=== PATIENT | female | born 1950 | race Caucasian/White ===

== ENCOUNTER 2025-03-17 15:48 | Observation (INO) | payer OTHER, SELFPAY ==
[2025-03-17] VITALS (48 sets, daily range): BP systolic 94–155; BP diastolic 37–63; PULSE 12–90; RESP 8–55; TEMP 36.5–36.6; O2SAT 93–99
--- NOTE | 2025-03-17 15:45 | DI.CT_ITS ---
Exam(s) CT CHEST/ABD/PEL WO CT THORACIC LUMBAR SPINE REC EXAM: CT CHEST/ABD/PEL WO CLINICAL HISTORY: trauma. TECHNIQUE: Imaging Protocol: Axial computed tomography images with coronal and sagittal reformatted images were created and reviewed. Computer aided detection (CAD) was utilized. Axial, coronal and sagittal images of the thoracic and lumbar spine were reconstructed from the chest abdomen and pelvic CT in bone and soft tissue algorithm. CONTRAST MATERIAL: Noncontrast Oral: / no COMPARISON: CT CT THORACIC LUMBAR SPINE REC from 03/17/2025 FINDINGS: CHEST: Pulmonary parenchyma: No consolidation. No dominant measurable mass. Mild right basilar atelectasis adjacent to the pleural effusion. Tracheobronchial tree: No bronchiectasis. No mucous plugging.No bronchial wall thickening. Pleura: Small bilateral pleural effusions, right greater than left. No pneumothorax. Mediastinum: No gross adenopathy. Cardiovascular: The heart is mildly enlarged. There are mitral annular calcifications. No pericardial effusion. Thoracic aorta non-dilated. Bones: Degenerative changes of the thoracic spine with endplate osteophytes. No lytic or blastic lesions. No compression fractures. No visible rib fractures. Soft tissues: Unremarkable. ABDOMEN and PELVIS: Liver: Tips. Normal density. No suspicious mass. Gallbladder and biliary tract: Gallbladder is somewhat distended. Question of small stones. Tips. Biliary air. Pancreas: Normal density, no abnormal calcifications or inflammatory process. Spleen: Normal size. Kidneys: Normal size, contour and axis. No radiodense stones. No obstructive uropathy. No suspicious masses seen. Adrenal glands: Bilateral adrenal enlargement, left greater than right. No focal mass is visible. Aorta: Abdominal portion non-dilated. Atherosclerotic changes. Lymph nodes: Within normal limits. Soft tissues: Right lateral soft tissue edema. No focal hematoma. Bladder: Unremarkable. Bowel: No obstruction or bowel wall thickening. Sigmoid diverticulosis. Normal quantity of stool. Peritoneal cavity: Ascites is noted around the liver and spleen, in both paracolic gutters as well as in the pelvis. No focal collection. No mesenteric inflammatory response. No free air. Bones: No evidence of fracture in the lumbar spine or pelvis. Degenerative disc changes and facet degenerative changes at L4-5 combine to cause severe central canal stenosis. There is mild central canal stenosis at L3-4 secondary to combination of degenerative changes. Reproductive organs: Unremarkable for age. IMPRESSION: No acute posttraumatic abnormality in the chest, abdomen or pelvis. Soft tissue edema laterally in the left lower chest and abdomen. There are small bilateral pleural effusions, right greater than left. Tips. Large quantity of ascites. The gallbladder is distended. Probable gallstones. No fractures are identified in the thoracic or lumbar spine. RADIATION DOSE DELIVERED: Total DLP DATA REPOSITORY: All CT scans at this facility are submitted to the National Radiology Data Registry (NRDR) Dose Index Registry (DIR) with the [employer] (A[employer]). RADIATION OPTIMIZATION: All CT scans at this facility use at least one of these dose optimization techniques: automated exposure control; mA and/or kV adjustment per patient size (includes targeted exams where dose is matched to clinical indication); or iterative reconstruction.
--- NOTE | 2025-03-17 15:45 | DI.RAD_ITS ---
Exam(s) XR PELVIS AP EXAM: XR PELVIS AP CLINICAL HISTORY: Fall. TECHNIQUE: 2D digital imaging was performed. Single AP view. COMPARISON: No exams were available for comparison FINDINGS: BONES: No acute fracture is present. No bony destructive lesion is seen. JOINTS: No dislocation present. Mild bilateral hip joint space narrowing is present. There is prominent bilateral acetabular spurring superiorly. There are mild degenerative changes at the pubic symphysis. The SI joints are unremarkable. SOFT TISSUE: Normal. IMPRESSION: Mild degenerative changes. No acute abnormality. DATA REPOSITORY: RADIATION DOSE DELIVERED:
--- NOTE | 2025-03-17 15:46 | DI.RAD_ITS ---
Exam(s) XR PORTABLE CHEST AP EXAM: XR PORTABLE CHEST AP CLINICAL HISTORY: AMS TECHNIQUE: 2D digital imaging was performed. COMPARISON: No exams were available for comparison FINDINGS: The exam is limited by poor pulmonary inflation. There are overlying monitoring leads. LUNGS: Linear atelectasis at the right lung base. No pleural abnormality seen. HEART: Normal size. AORTA: Normal diameter. BONES: Unremarkable for age. Soft tissues: Unremarkable. IMPRESSION: Limited exam. No acute findings. DATA REPOSITORY: RADIATION DOSE DELIVERED:
--- NOTE | 2025-03-17 15:56 | DI.CT_ITS ---
Exam(s) CT HEAD CERVICAL SPINE WO EXAM: CT HEAD CERVICAL SPINE WO CLINICAL HISTORY: trauma. TECHNIQUE: Imaging Protocol: Axial computed tomography images with coronal and sagittal reformatted images were created and reviewed COMPARISON: None FINDINGS: Head CT Ventricles and Extra axial spaces: Normal in size and morphology for the patient's age. Hemorrhage: None. Cerebral parenchyma: No evidence of mass or acute infarct. Midline shift: None. Brainstem/Cerebellum: Normal. Calvarium: Normal. Visualized Paranasal sinuses/Mastoids: Clear. Soft tissues: Unremarkable. Cervical Spine CT BONES: Vertebral body heights are maintained. Alignment is normal. There is no evidence of acute fracture. Advanced degenerative disc changes and facet degenerative changes are seen . SOFT TISSUES: No paraspinal hematoma. The airway appears intact. No pneumothorax is seen at the lung apices. IMPRESSION: Head CT: No acute abnormality. C-spine CT: Degenerative changes, no acute abnormality. RADIATION DOSE DELIVERED: Total DLP DATA REPOSITORY: All CT scans at this facility are submitted to the National Radiology Data Registry (NRDR) Dose Index Registry (DIR) with the [employer] (ACR). RADIATION OPTIMIZATION: All CT scans at this facility use at least one of these dose optimization techniques: automated exposure control; mA and/or kV adjustment per patient size (includes targeted exams where dose is matched to clinical indication); or iterative reconstruction.
[2025-03-17] MEDS: Normal Saline 1,000 ML 1000 ML IV (16:03)
[2025-03-17 16:11] LABS: Abs Immature Grans 0.13 10^3/uL (0.0-0.06); HCT 30.9 % (36.0-46.0); HGB 10.4 g/dL (11.2-15.7); Immature Grans % 1.0 %; MCH 30.3 pg (27.0-33.0); MCHC 33.7 % (32.0-36.0); MCV 90 fL (80-95); MPV 12.1 fL (8.0-11.0); Platelet Count 194 10^3/uL (130-400); RBC 3.43 10^6/uL (3.93-5.22); RDW 16.0 % (11.7-14.6); RDW-SD 52.7 fL; WBC 13.60 10^3/uL (4.4-10.8)
--- NOTE | 2025-03-17 16:23 | W.ED.GENAD ---
Discharge Plan Disposition Patient Disposition: Admit to [facility] Condition: Serious Discharge Details Clinical Impression: Acute renal failure ED Provider: Vega Groves Home Meds and New Rx's Prescriptions: No Action Unable to Obtain HPI General Date/Time Provider Initiated Documentation: 03/17/25 16:07. HPI Narrative: MDM/Narrative: [] 18: 09 Case discussed with radiology who refuses to use contrast media given the patient's acute renal failure. As such we will obtain noncontrasted studies of the chest abdomen pelvis and spine to rule out acute traumatic injury as well as assessed for possible metastatic burden as a cause of patient's symptoms 18:55 Results reviewed patient is currently in acute renal failure, with an elevated leukocytosis which could be due to her severe pain however given the fact that she presented hypotensive and altered, patient was treated with broad-spectrum antibiotics. Disposition: [] HPI: [] ROS: Negative besides as mentioned above Exam: [] Rhythm: NSR Rate: [] [place]: Normal axis Intervals: Normal intervals Other findings: No acute ST segment or T wave changes to suggest acute ischemia. Labs: 03/17/25 17:29 Blood Blood Culture - Pending 03/17/25 16:04 Blood Blood Culture - Pending Laboratory Tests Range/Units 03/17/25 03/17/25 03/17/25 16:03 16:04 17:29 WBC (4.4-10.8) 10^3/uL 13.60 H RBC (3.93-5.22) 10^6/uL 3.43 L Hgb (11.2-15.7) g/dL 10.4 L Hct (36.0-46.0) % 30.9 L MCV (80-95) fL 90 MCH (27.0-33.0) pg 30.3 MCHC (32.0-36.0) % 33.7 RDW (11.7-14.6) % 16.0 H Plt Count (130-400) 10^3/uL 194 MPV (8.0-11.0) fL 12.1 H Immature Gran % % 1.0 Neutrophils % % 84.4 Lymphocytes % % 4.3 Monocytes % % 7.7 Eosinophils % % 2.1 Basophils % % 0.5 Nucleated RBC % (0.0-0.3) % 0.0 Absolute Neutrophils (1.2-6.7) 10^3/uL 11.48 H Absolute Lymphocytes (1.2-3.4) 10^3/uL 0.58 L Absolute Monocytes (0.1-0.8) 10^3/uL 1.05 H Absolute Eosinophils (0.0-0.7) 10^3/uL 0.29 Absolute Basophils (0.0-0.2) 10^3/uL 0.07 Sodium (136-145) mmol/L 135 L Potassium (3.5-5.1) mmol/L 3.7 Chloride (98-107) mmol/L 97 L Carbon Dioxide (21.0-32.0) mmol/L 25.1 Anion Gap (3-11) mmol/L 12.9 H BUN (7-18) mg/dL 88 H* Creatinine (0.55-1.02) mg/dL 6.9 H* Est GFR (CKD-EPI 2020) (mL/min/1.73m2) 5.79 Glucose (74-106) mg/dL 124 H Calcium (8.5-10.1) mg/dL 8.2 L Magnesium (1.8-2.4) mg/dL 2.3 Total Bilirubin (0.2-1.0) mg/dL 2.0 H AST (15-37) U/L 140 H ALT (14-59) U/L 116 H Alkaline Phosphatase (46-116) U/L 897 H Ammonia Cancelled 45 H Troponin I (<or=51) ng/L 23 Total Protein (6.4-8.2) g/dL 6.3 L Albumin (3.4-5.0) g/dL 1.8 L Lipase (<78) U/L 68 Procalcitonin ng/mL 1.25 TSH (0.36-3.74) uIU/mL 19.28 H Free T4 (0.76-1.46) ng/dL 1.13 ABO/Rh A Positive Antibody Screen NEGATIVE Radiology: Exam(s) XR PELVIS AP EXAM: XR PELVIS AP CLINICAL HISTORY: Fall. TECHNIQUE: 2D digital imaging was performed. Single AP view. COMPARISON: No exams were available for comparison FINDINGS: BONES: No acute fracture is present. No bony destructive lesion is seen. JOINTS: No dislocation present. Mild bilateral hip joint space narrowing is present. There is prominent bilateral acetabular spurring superiorly. There are mild degenerative changes at the pubic symphysis. The SI joints are unremarkable. SOFT TISSUE: Normal. IMPRESSION: Mild degenerative changes. No acute abnormality. Exam(s) XR PORTABLE CHEST AP EXAM: XR PORTABLE CHEST AP CLINICAL HISTORY: AMS TECHNIQUE: 2D digital imaging was performed. COMPARISON: No exams were available for comparison FINDINGS: The exam is limited by poor pulmonary inflation. There are overlying monitoring leads. LUNGS: Linear atelectasis at the right lung base. No pleural abnormality seen. HEART: Normal size. AORTA: Normal diameter. BONES: Unremarkable for age. Soft tissues: Unremarkable. IMPRESSION: Limited exam. No acute findings. Exam(s) CT HEAD CERVICAL SPINE WO EXAM: CT HEAD CERVICAL SPINE WO CLINICAL HISTORY: trauma. TECHNIQUE: Imaging Protocol: Axial computed tomography images with coronal and sagittal reformatted images were created and reviewed COMPARISON: None FINDINGS: Head CT Ventricles and Extra axial spaces: Normal in size and morphology for the patient's age. Hemorrhage: None. Cerebral parenchyma: No evidence of mass or acute infarct. Midline shift: None. Brainstem/Cerebellum: Normal. Calvarium: Normal. Visualized Paranasal sinuses/Mastoids: Clear. Soft tissues: Unremarkable. Cervical Spine CT BONES: Vertebral body heights are maintained. Alignment is normal. There is no evidence of acute fracture. Advanced degenerative disc changes and facet degenerative changes are seen . SOFT TISSUES: No paraspinal hematoma. The airway appears intact. No pneumothorax is seen at the lung apices. IMPRESSION: Head CT: No acute abnormality. C-spine CT: Degenerative changes, no acute abnormality. This report is currently processing and HAS NOT BEEN OFFICIALLY SIGNED BY THE PHYSICIAN - ESTIMATED TIME OF APPROVAL IS 03/17/2025 19:03. Exam(s) CT CHEST/ABD/PEL WO CT THORACIC LUMBAR SPINE REC EXAM: CT CHEST/ABD/PEL WO CLINICAL HISTORY: trauma. TECHNIQUE: Imaging Protocol: Axial computed tomography images with coronal and sagittal reformatted images were created and reviewed. Computer aided detection (CAD) was utilized. Axial, coronal and sagittal images of the thoracic and lumbar spine were reconstructed from the chest abdomen and pelvic CT in bone and soft tissue algorithm. CONTRAST MATERIAL: Noncontrast Oral: / no COMPARISON: CT CT THORACIC LUMBAR SPINE REC from 03/17/2025 FINDINGS: CHEST: Pulmonary parenchyma: No consolidation. No dominant measurable mass. Mild right basilar atelectasis adjacent to the pleural effusion. Tracheobronchial tree: No bronchiectasis. No mucous plugging.No bronchial wall thickening. Pleura: Small bilateral pleural effusions, right greater than left. No pneumothorax. Mediastinum: No gross adenopathy. Cardiovascular: The heart is mildly enlarged. There are mitral annular calcifications. No pericardial effusion. Thoracic aorta non-dilated. Bones: Degenerative changes of the thoracic spine with endplate osteophytes. No lytic or blastic lesions. No compression fractures. No visible rib fractures. Soft tissues: Unremarkable. ABDOMEN and PELVIS: Liver: Tips. Normal density. No suspicious mass. Gallbladder and biliary tract: Gallbladder is somewhat distended. Question of small stones. Tips. Biliary air. Pancreas: Normal density, no abnormal calcifications or inflammatory process. Spleen: Normal size. Kidneys: Normal size, contour and axis. No radiodense stones. No obstructive uropathy. No suspicious masses seen. Adrenal glands: Bilateral adrenal enlargement, left greater than right. No focal mass is visible. Aorta: Abdominal portion non-dilated. Atherosclerotic changes. Lymph nodes: Within normal limits. Soft tissues: Right lateral soft tissue edema. No focal hematoma. Bladder: Unremarkable. Bowel: No obstruction or bowel wall thickening. Sigmoid diverticulosis. Normal quantity of stool. Peritoneal cavity: Ascites is noted around the liver and spleen, in both paracolic gutters as well as in the pelvis. No focal collection. No mesenteric inflammatory response. No free air. Bones: No evidence of fracture in the lumbar spine or pelvis. Degenerative disc changes and facet degenerative changes at L4-5 combine to cause severe central canal stenosis. There is mild central canal stenosis at L3-4 secondary to combination of degenerative changes. Reproductive organs: Unremarkable for age. IMPRESSION: No acute posttraumatic abnormality in the chest, abdomen or pelvis. Soft tissue edema laterally in the left lower chest and abdomen. There are small bilateral pleural effusions, right greater than left. Tips. Large quantity of ascites. The gallbladder is distended. Probable gallstones. No fractures are identified in the thoracic or lumbar spine. Related Data Home Medications ?Medication ?Instructions ?Recorded ?Confirmed Unknown [Unable to Obtain] 03/17/25 03/17/25 Allergies Allergy/AdvReac Type Severity Reaction Status Date / Time Unable to Assess Allergy Unverified 03/17/25 19:48 General Stated Complaint: AMS/LOC RIANA: 2 Course Vital Signs Vital signs: Vital Signs Temperature 36.6 C 03/17/25 15:49 Pulse 12 L 03/17/25 15:49 Respiratory Rate 55 H 03/17/25 15:49 Blood Pressure 94/43 L 03/17/25 15:49 Pulse Oximetry 96 03/17/25 15:49 Temperature 36.6 C 03/17/25 15:49 Temperature Source Tympanic 03/17/25 15:49 Pulse 55 L 03/17/25 15:49 Respiratory Rate 12 03/17/25 15:49 Blood Pressure 94/43 L 03/17/25 15:49 Blood Pressure Position Sitting 03/17/25 15:49 Pulse Oximetry 96 03/17/25 15:49 Oxygen Delivery Method Room Air 03/17/25 15:49 Oxygen Flow Rate 0 03/17/25 15:49 Pain Level 10 03/17/25 15:49 Lab/Test Results Lab/Test Results: 03/17/25 16:04 Blood Blood Culture - Pending 03/17/25 16:04 Blood Blood Culture - Pending Laboratory Tests Range/Units 03/17/25 16:03 WBC (4.4-10.8) 10^3/uL 13.60 H RBC (3.93-5.22) 10^6/uL 3.43 L Hgb (11.2-15.7) g/dL 10.4 L Hct (36.0-46.0) % 30.9 L MCV (80-95) fL 90 MCH (27.0-33.0) pg 30.3 MCHC (32.0-36.0) % 33.7 RDW (11.7-14.6) % 16.0 H Plt Count (130-400) 10^3/uL 194 MPV (8.0-11.0) fL 12.1 H Immature Gran % % 1.0 Neutrophils % % 84.4 Lymphocytes % % 4.3 Monocytes % % 7.7 Eosinophils % % 2.1 Basophils % % 0.5 Nucleated RBC % (0.0-0.3) % 0.0 Absolute Neutrophils (1.2-6.7) 10^3/uL 11.48 H Absolute Lymphocytes (1.2-3.4) 10^3/uL 0.58 L Absolute Monocytes (0.1-0.8) 10^3/uL 1.05 H Absolute Eosinophils (0.0-0.7) 10^3/uL 0.29 Absolute Basophils (0.0-0.2) 10^3/uL 0.07 PFSH All Active Problems (Updated 03/17/25 @ 19:52 by Vega Groves MD) Acute renal failure (Acute) Social History Smoking/Tobacco Use Status: Never Smoking risk assessment performed?: Yes Alcohol Intake: never Substance use type: does not use
[2025-03-17] MEDS: fentaNYL 100 MCG/2 ML VIAL 50 MCG IVP (16:30)
[2025-03-17 16:45] LABS: ALT 116 U/L (14-59); AST 140 U/L (15-37); Albumin 1.8 g/dL (3.4-5.0); Alkaline Phosphatase 897 U/L (46-116); Anion Gap 12.9 mmol/L (3-11); Bilirubin, Total 2.0 mg/dL (0.2-1.0); CO2 25.1 mmol/L (21.0-32.0); Calcium 8.2 mg/dL (8.5-10.1); Chloride 97 mmol/L (98-107); Estimated GFR 5.79 (mL/min/1.73m2); Glucose 124 mg/dL (74-106); Magnesium 2.3 mg/dL (1.8-2.4); Potassium 3.7 mmol/L (3.5-5.1); Sodium 135 mmol/L (136-145); TSH (W/Ref FT4) 19.28 uIU/mL (0.36-3.74); Total Protein 6.3 g/dL (6.4-8.2); Troponin I 23 ng/L (<or=51)
[2025-03-17 16:46] LABS: BUN 88 mg/dL (7-18)
--- NOTE | 2025-03-17 16:52 | NUR.NOTE ---
Nursing Note: Multiple attempts have been made to obtain blood cultures and repeat Ammonia per lab, lab was called to come draw but they are backed up, pt. still needs CT and X-ray.
[2025-03-17] MEDS: HYDROmorphone 2 MG/ML SYR 0.5 MG IVP (16:58)
[2025-03-17 16:59] LABS: Procalcitonin 1.25 ng/mL
[2025-03-17 17:10] LABS: Lipase 68 U/L (<78)
--- NOTE | 2025-03-17 17:38 | NUR.NOTE ---
Nursing Note: First set of BC, H&H, and troponin labs drawn by hazmat technician, electroplating laborer returned to lab with samples for processing. MD request CT at this time and second set of BC will be drawn when patient returns to the room. Pt. resting more comfortably, able to fall asleep between verbal stimulus, pt. appears more responsive to nurse, able to answer more questions.
[2025-03-17 17:49] LABS: Ammonia 45 umol/L (11-32)
[2025-03-17] MEDS: metroNIDAZOLE 500 MG/100 ML BAG 100 MG IVPB (19:10)
[2025-03-17] MEDS: VANCOMYCIN/WATER (PEG) 1.25 GM/250 ML BAG IVPB (19:14)
[2025-03-17 19:41] LABS: Glucose Negative (Negative)
[2025-03-17 19:42] LABS: Troponin I 23 ng/L (<or=51)
[2025-03-17 19:52] LABS: C & S Indicated? Yes; WBC >50 HPF (0-5)
[2025-03-17 19:56] LABS: Cannabinoids THC Negative (Negative); METHADONE URINE SCREEN Negative (Negative)
--- NOTE | 2025-03-17 20:32 | W.PM.HP.N ---
Date of service: 03/17/25 Time of Service: 20:00 Assessment and Plan Assessment and plan (1) Acute renal failure superimposed on chronic kidney disease: Status: Acute Assessment and plan: Possible hepatorenal syndrome, possibly in the setting of chronic liver failure exacerbated by new cholangiocarcinoma diagnosis? No previous labs are available Oliguria, approximately 50 ml produced in ED after NS1L bolus Baig placed, trace fluid in the bag on floor arrival Giving additional 250 ml NS over 2 hours Consider starting diuretics in the morning Home regimen includes bumetanide 1 mg, no info available on who prescribed nor status of renal disease (presumptive chronic) Will defer additional nephrology diagnostic workup as it will not influence current management at this facility Ordered renal labs for the AM Code status not established Stopped antibiotics Awaiting [facility] transfer for stage V renal failure (2) Hepatic failure: Status: Acute Assessment and plan: Given ascites, history of TIPS, elevated liver enzymes, hyperammonemia: presumptive chronic liver disease/failure Cirrhosis not seen on imaging - malignancy? Ordered coag panel Will defer additional hepatology diagnostic workup as it will not influence current management at this facility Patient's GI doc is Yamilka Benson at [facility] (3) S/P TIPS (transjugular intrahepatic portosystemic shunt): Status: Acute Assessment and plan: Noted on imaging (4) Cholangiocarcinoma of biliary tract: Status: Acute Assessment and plan: Noted on March 09 [facility] referral from [facility] (5) Renal artery stenosis: Status: Acute Assessment and plan: Noted on problem list at [facility] (6) Hypothyroidism: Status: Chronic Assessment and plan: Continue home levothyroxine 137 (7) Benign essential hypertension: Status: Acute Assessment and plan: Holding home regimen for hypotension History of Present Illness History of Present Illness Chief Complaint: hypotension Narrative: Soheila Sandhu is a 74 year old woman presenting March 17, sent in from [facility] oncology clinic across the [address] for hypotension 83/29. Reportedly she also fell. She was found to be in severe renal failure with GFR below 6, with substantial BLE weeping edema. Family noted that she has intrabiliary cancer; her two sons left once [facility] was contacted. Patient has waxing and waning cognition and does not remember why she is in [facility]; she reports that she feels like crap since December. She lives in [facility] and receives most of her care in [place]. Most information here is gathered from the [facility] medical record which is sparse. February 13 she was at [place] ED and a transfer to [facility] was attempted at that time; notes/labs not available. March 09 she was referred to [facility] oncology by Yamilka Benson, timber surveyor at [facility] in [place]; again notes/labs not available other than elevated transaminases, elevated bilirubin, and diagnosis of cholangiocarcinoma. [facility] has renal artery stenosis on her problem list. She had a mid-February appointment with [facility] nephrology and did not show. Today's oncology appointment was apparently her first oncology intake appointment. Patient did not participate in code status discussion. PMH: renal artery stenosis, HTN on high dose losartan and carvedilol, mitral valve prolapse, depression, HLD, hypothyroid She is on bumetanide, no info on who prescribed this nor how long she has been on it She is on oxocodone, 22.5 MME/day In the ED BP was 94/43. Mild bradycardia 57. Other vitals unremarkable. CXR and pelvic XR unremarkable. She was worked up for trauma with CT chest/abdomen/pelvis, T and L spine, which showed she has had a TIPS procedure and has biliary air present. Soft tissue edema seen up to the left lower chest. She has small BL pleural effusions, distended gallbladder, degenerative spine disease, bilateral adrenal enlargement, large ascites throughout the abdomen. CT head and C spine unremarkable. CBC significant for neutrophilic leukocytosis WBC 13.6, mild anemia H&H 10.4/30.9. CMP significant for mild acidosis AG 12.9, BUN 88, Cr 6.9, glucose 124, total bilirubin 2.0, AST 140, ALT 116, alkaline phosphatase 894, ammonia 45, albumin 1.8. TSH very high 19.28 with free T4 1.13 within normal limits. She was given NS1L bolus, which immediately improved blood pressure and mentation, and was given pain meds and started on antibiotics. [facility] nephrology was contacted and she was accepted for transfer pending bed availability. PFSH All Active Problems (Updated 03/17/25 @ 22:40 by Jam Suarez MD) Renal artery stenosis (Acute) Benign essential hypertension (Acute) Hypothyroidism (Chronic) 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) Acute renal failure superimposed on chronic kidney disease (Acute) Hepatic failure (Acute) Acute renal failure (Acute) Social History Smoking/Tobacco Use Status: Never Smoking risk assessment performed?: Yes Alcohol Intake: never Substance use type: does not use Housing: house Meds Allergies and Home Medications Allergies Allergy/AdvReac Type Severity Reaction Status Date / Time Unable to Assess Allergy Unverified 03/17/25 19:48 Home Medications ?Medication ?Instructions ?Recorded ?Confirmed ?Type bumetanide 1 mg tablet 1 mg PO DAILY 03/17/25 03/17/25 History carvedilol 25 mg tablet 25 mg PO BID 03/17/25 03/17/25 History levothyroxine 137 mcg tablet 137 mcg PO DAILY 03/17/25 03/17/25 History (Euthyrox) losartan 100 mg tablet (Cozaar) See Rx Instructions PO BID 03/17/25 03/17/25 History ondansetron 4 mg disintegrating 8 mg PO Q8H PRN nausea and vomiting 03/17/25 03/17/25 History tablet oxycodone 5 mg tablet 5 mg PO Q8H PRN pain 03/17/25 03/17/25 History rosuvastatin 5 mg tablet (Crestor) 5 mg PO DAILY 03/17/25 03/17/25 History Exam Narrative Exam Narrative: General: This is a toxic-appearing, elderly woman, very fatigued HEENT: Normocephalic, atraumatic CV: RRR Resp: Diminished bibasilar sounds, good movement of air without increased work of breathing Abd: soft, mildly distended, anasarca to the epigastrium MSK: voluntary motion x4. Weeping 3+ edema bilaterally to the hips Neuro: Awake, alert, CN II-XII intact. Interactions limited by fatigue. Results Labs 03/17/25 16:03 03/17/25 16:03 Labs: Laboratory Results - last 24 hr 03/17/25 03/17/25 03/17/25 16:03 16:04 17:29 WBC 13.60 H RBC 3.43 L Hgb 10.4 L Hct 30.9 L MCV 90 MCH 30.3 MCHC 33.7 RDW 16.0 H Plt Count 194 MPV 12.1 H Immature Gran % 1.0 Neutrophils % 84.4 Lymphocytes % 4.3 Monocytes % 7.7 Eosinophils % 2.1 Basophils % 0.5 Nucleated RBC % 0.0 Absolute Neutrophils 11.48 H Absolute Lymphocytes 0.58 L Absolute Monocytes 1.05 H Absolute Eosinophils 0.29 Absolute Basophils 0.07 Sodium 135 L Potassium 3.7 Chloride 97 L Carbon Dioxide 25.1 Anion Gap 12.9 H BUN 88 H* Creatinine 6.9 H* Est GFR (CKD-EPI 2020) 5.79 Glucose 124 H Calcium 8.2 L Magnesium 2.3 Total Bilirubin 2.0 H AST 140 H ALT 116 H Alkaline Phosphatase 897 H Ammonia Cancelled 45 H Troponin I 23 Total Protein 6.3 L Albumin 1.8 L Lipase 68 Procalcitonin 1.25 TSH 19.28 H Free T4 1.13 Urine Color Urine Clarity Urine pH Ur Specific [place] Urine Protein Urine Ketones Urine Blood Urine Nitrite Urine Bilirubin Urine Urobilinogen Ur Leukocyte Esterase Urine RBC Urine WBC Ur Epithelial Cells Urine Crystals Urine Bacteria Urine Casts Urine Mucus Ur Culture Indicated? Urine Glucose Urine Opiates Screen Urine Methadone Screen Ur Barbiturates Screen Ur Tricyclics Screen Ur Amphetamines Screen U Benzodiazepines Scrn Urine Cocaine Screen Ur THC Screen ABO/Rh A Positive Antibody Screen NEGATIVE 03/17/25 03/17/25 19:13 19:25 WBC RBC Hgb Hct MCV MCH MCHC RDW Plt Count MPV Immature Gran % Neutrophils % Lymphocytes % Monocytes % Eosinophils % Basophils % Nucleated RBC % Absolute Neutrophils Absolute Lymphocytes Absolute Monocytes Absolute Eosinophils Absolute Basophils Sodium Potassium Chloride Carbon Dioxide Anion Gap BUN Creatinine Est GFR (CKD-EPI 2020) Glucose Calcium Magnesium Total Bilirubin AST ALT Alkaline Phosphatase Ammonia Troponin I 23 Total Protein Albumin Lipase Procalcitonin TSH Free T4 Urine Color Yellow Urine Clarity Sl Cloudy Urine pH 5.5 Ur Specific [place] 1.020 Urine Protein Trace Urine Ketones Negative Urine Blood Trace-intact H Urine Nitrite Negative Urine Bilirubin Small H Urine Urobilinogen 2.0 H Ur Leukocyte Esterase Moderate H Urine RBC 3-5 H Urine WBC >50 H Ur Epithelial Cells Few Urine Crystals Negative Urine Bacteria Few Urine Casts Negative Urine Mucus Negative Ur Culture Indicated? Yes Urine Glucose Negative Urine Opiates Screen Positive A Urine Methadone Screen Negative Ur Barbiturates Screen Negative Ur Tricyclics Screen Negative Ur Amphetamines Screen Negative U Benzodiazepines Scrn Negative Urine Cocaine Screen Negative Ur THC Screen Negative ABO/Rh Antibody Screen Last Vital Signs Temp 36.6 C 03/17/25 15:49 Pulse 57 L 03/17/25 20:10 Resp 13 03/17/25 20:10 BP 132/52 L 03/17/25 20:02 Pulse Ox 97 03/17/25 20:10 Time Spent Time spent with Patient: 55-74 minutes Time was spent: preparing to see the patient(eg.review tests), obtaining and/or reviewing separately otained hiistory, ordering medications,tests, procedures, referring, communicating with other health nurse behavioral health care, indepentently interpreting results, counseling the patient and care coordination
--- NOTE | 2025-03-17 20:36 | TELEP.MEDR_ITS ---
Date of service: 03/17/25 Time of Service: 20:36 Telepharmacy Home Med Rec Allergies Allergies: Unable to Assess Allergy (Unverified 03/17/25 19:48) Interview Person Interviewed: * Patient and family not able to provide any information about home meds, only able to use surescript data from [employer] system Quality Quality of Interview/Accuracy of Medication List: Fair Sources Sources used to compile medication list: SureScripts Changes made to Home Medication List: ADDITIONS: * Bumex 1mg po daily * Coreg 25mg po bid * Levothyroxine 137mcg po daily * Losartan 100mg po AM and 150mg po PM * Zofran ODT 8mg po tid prn * Oxycodone 5mg po tid prn * Crestor 5mg po daily DELETIONS: * None CHANGES: * None Additional Notes Additional Notes: * No information on last doses currently available. Recommended Changes Recommended Changes(reason for recommendation): * None Attestation: The home medication list is now updated to the best of my knowledge and is ready to be reconciled by the provider. Please contact the TelePharmacy Medication Reconciliation Pharmacist at for any questions.
--- NOTE | 2025-03-17 20:36 | TELEP.MEDREC ---
Date of service: 03/17/25 Time of Service: 20:36 Telepharmacy Home Med Rec Allergies Allergies: Unable to Assess Allergy (Unverified 03/17/25 19:48) Interview Person Interviewed: Patient and family not able to provide any information about home meds, only able to use surescript data from [employer] system Quality Quality of Interview/Accuracy of Medication List: Fair Sources Sources used to compile medication list: SureScripts Changes made to Home Medication List: ADDITIONS: Bumex 1mg po daily Coreg 25mg po bid Levothyroxine 137mcg po daily Losartan 100mg po AM and 150mg po PM Zofran ODT 8mg po tid prn Oxycodone 5mg po tid prn Crestor 5mg po daily DELETIONS: None CHANGES: None Additional Notes Additional Notes: No information on last doses currently available. Recommended Changes Recommended Changes(reason for recommendation): None Attestation: The home medication list is now updated to the best of my knowledge and is ready to be reconciled by the provider. Please contact the TelePharmacy Medication Reconciliation Pharmacist at for any questions.
[2025-03-17 20:43] LABS: COVID-19 PCR Negative (Negative); RSV PCR Negative (Negative)
--- NOTE | 2025-03-17 20:47 | W.PC.ACHO ---
Registration Status: ADM UNIQEU Primary Language: Preferred Language: ED Information & Data Chief Complaint AMS/LOC 03/17/25 18:11 Triage Note Patient brought in by EMS 03/17/25 15:49 from [facility], pt. was there for her first intake appointment and was sent here for lethargy and AMS. Most Recent Vital Signs Temperature 36.6 C 03/17/25 15:49 Temperature Source Tympanic 03/17/25 15:49 Pulse 57 L 03/17/25 20:10 Pulse Rhythm Regular 03/17/25 18:34 Pulse Strength Normal 03/17/25 18:34 Pulse 57 L 03/17/25 20:10 Respiratory Rate 13 03/17/25 20:10 Respiratory Effort Normal 03/17/25 18:34 Respiratory Depth Normal 03/17/25 18:34 Respiratory Pattern Normal 03/17/25 18:34 Blood Pressure 132/52 L 03/17/25 20:02 Blood Pressure Mean 76 03/17/25 20:02 Blood Pressure Position Supine 03/17/25 18:34 Pulse Oximetry 97 03/17/25 20:10 Oxygen Delivery Method Room Air 03/17/25 19:27 Oxygen Flow Rate 0 03/17/25 19:27 Pain Level 3 03/17/25 20:23 Allergies Unable to Assess Allergy (Unverified 03/17/25 19:48) Active Medications Generic Name Dose Route Start Last Admin Trade Name Freq PRN Reason Stop Dose Admin Hydromorphone HCl 0.5 mg 03/17/25 16:22 03/17/25 16:58 Hydromorphone 2 Mg/Ml Syr IVP 0.5 mg Q1H PRN PRN Administration Piperacillin Sod/Tazobactam 100 mls @ 200 mls/hr 03/17/25 16:15 03/17/25 19:52 Sod 3.375 gm/ Sodium Chloride IVPB Infused Q6H ROBBIE Infusion Metronidazole 500 mg in 100 mls @ 100 mls/hr 03/17/25 16:15 03/17/25 20:23 Flagyl IVPB Infused Q8H ROBBIE Infusion IV IV Catheter Type [Right Wrist] Saline Lock IV Catheter Gauge [Left Upper 18 arm] IV Catheter Gauge [Right Wrist 18 ] Diet Orders Category Date Time Status Renal [DIET] Nutrition 03/18/25 Breakfast Ordered Diagnostics 03/17/25 03/17/25 03/17/25 Range/Units 19:52 19:25 19:13 WBC (4.4-10.8) 10^3/uL RBC (3.93-5.22) 10^6/uL Hgb (11.2-15.7) g/dL Hct (36.0-46.0) % MCV (80-95) fL MCH (27.0-33.0) pg MCHC (32.0-36.0) % RDW (11.7-14.6) % Plt Count (130-400) 10^3/uL MPV (8.0-11.0) fL Immature Gran % % Neutrophils % % Lymphocytes % % Monocytes % % Eosinophils % % Basophils % % Nucleated RBC % (0.0-0.3) % Absolute Neutrophils (1.2-6.7) 10^3/uL Absolute Lymphocytes (1.2-3.4) 10^3/uL Absolute Monocytes (0.1-0.8) 10^3/uL Absolute Eosinophils (0.0-0.7) 10^3/uL Absolute Basophils (0.0-0.2) 10^3/uL Sodium (136-145) mmol/L Potassium (3.5-5.1) mmol/L Chloride (98-107) mmol/L Carbon Dioxide (21.0-32.0) mmol/L Anion Gap (3-11) mmol/L BUN (7-18) mg/dL Creatinine (0.55-1.02) mg/dL Est GFR (CKD-EPI 2020) (mL/min/1.73m2) Glucose (74-106) mg/dL Calcium (8.5-10.1) mg/dL Magnesium (1.8-2.4) mg/dL Total Bilirubin (0.2-1.0) mg/dL AST (15-37) U/L ALT (14-59) U/L Alkaline Phosphatase (46-116) U/L Ammonia Troponin I 23 (<or=51) ng/L Total Protein (6.4-8.2) g/dL Albumin (3.4-5.0) g/dL Lipase (<78) U/L Procalcitonin ng/mL TSH (0.36-3.74) uIU/mL Free T4 (0.76-1.46) ng/dL Urine Color Yellow (Yellow) Urine Clarity Sl Cloudy (Clear) Urine pH 5.5 (5-8) Ur Specific [place] 1.020 (1.005-1.025) Urine Protein Trace (Neg-Trace) mg/dL Urine Ketones Negative (Negative) mg/dL Urine Blood Trace-intact H (Negative) Urine Nitrite Negative (Negative) Urine Bilirubin Small H (Negative) Urine Urobilinogen 2.0 H (Up to 0.2) mg/dL Ur Leukocyte Esterase Moderate H (Negative) Urine RBC 3-5 H (0-2) HPF Urine WBC >50 H (0-5) HPF Ur Epithelial Cells Few (Negative) HPF Urine Crystals Negative (Negative) HPF Urine Bacteria Few (Negative) HPF Urine Casts Negative (Negative) LPF Urine Mucus Negative (Negative) Ur Culture Indicated? Yes Urine Glucose Negative (Negative) mg/dL Urine Opiates Screen Positive A (Negative) Urine Methadone Screen Negative (Negative) Ur Barbiturates Screen Negative (Negative) Ur Tricyclics Screen Negative (Negative) Ur Amphetamines Screen Negative (Negative) U Benzodiazepines Scrn Negative (Negative) Urine Cocaine Screen Negative (Negative) Ur THC Screen Negative (Negative) COVID-19 Source Pending SARS-CoV-2 (PCR) Pending Influenza Type A (PCR) Pending Influenza Type B (PCR) Pending RSV (PCR) Pending ABO/Rh Antibody Screen 03/17/25 03/17/25 03/17/25 Range/Units 18:46 17:29 16:04 WBC (4.4-10.8) 10^3/uL RBC (3.93-5.22) 10^6/uL Hgb (11.2-15.7) g/dL Hct (36.0-46.0) % MCV (80-95) fL MCH (27.0-33.0) pg MCHC (32.0-36.0) % RDW (11.7-14.6) % Plt Count (130-400) 10^3/uL MPV (8.0-11.0) fL Immature Gran % % Neutrophils % % Lymphocytes % % Monocytes % % Eosinophils % % Basophils % % Nucleated RBC % (0.0-0.3) % Absolute Neutrophils (1.2-6.7) 10^3/uL Absolute Lymphocytes (1.2-3.4) 10^3/uL Absolute Monocytes (0.1-0.8) 10^3/uL Absolute Eosinophils (0.0-0.7) 10^3/uL Absolute Basophils (0.0-0.2) 10^3/uL Sodium (136-145) mmol/L Potassium (3.5-5.1) mmol/L Chloride (98-107) mmol/L Carbon Dioxide (21.0-32.0) mmol/L Anion Gap (3-11) mmol/L BUN (7-18) mg/dL Creatinine (0.55-1.02) mg/dL Est GFR (CKD-EPI 2020) (mL/min/1.73m2) Glucose (74-106) mg/dL Calcium (8.5-10.1) mg/dL Magnesium (1.8-2.4) mg/dL Total Bilirubin (0.2-1.0) mg/dL AST (15-37) U/L ALT (14-59) U/L Alkaline Phosphatase (46-116) U/L Ammonia 45 H Troponin I Pending (<or=51) ng/L Total Protein (6.4-8.2) g/dL Albumin (3.4-5.0) g/dL Lipase (<78) U/L Procalcitonin 1.25 ng/mL TSH (0.36-3.74) uIU/mL Free T4 (0.76-1.46) ng/dL Urine Color (Yellow) Urine Clarity (Clear) Urine pH (5-8) Ur Specific [place] (1.005-1.025) Urine Protein (Neg-Trace) mg/dL Urine Ketones (Negative) mg/dL Urine Blood (Negative) Urine Nitrite (Negative) Urine Bilirubin (Negative) Urine Urobilinogen (Up to 0.2) mg/dL Ur Leukocyte Esterase (Negative) Urine RBC (0-2) HPF Urine WBC (0-5) HPF Ur Epithelial Cells (Negative) HPF Urine Crystals (Negative) HPF Urine Bacteria (Negative) HPF Urine Casts (Negative) LPF Urine Mucus (Negative) Ur Culture Indicated? Urine Glucose (Negative) mg/dL Urine Opiates Screen (Negative) Urine Methadone Screen (Negative) Ur Barbiturates Screen (Negative) Ur Tricyclics Screen (Negative) Ur Amphetamines Screen (Negative) U Benzodiazepines Scrn (Negative) Urine Cocaine Screen (Negative) Ur THC Screen (Negative) COVID-19 Source SARS-CoV-2 (PCR) Influenza Type A (PCR) Influenza Type B (PCR) RSV (PCR) ABO/Rh A Positive Antibody Screen NEGATIVE 03/17/25 Range/Units 16:03 WBC 13.60 H (4.4-10.8) 10^3/uL RBC 3.43 L (3.93-5.22) 10^6/uL Hgb 10.4 L (11.2-15.7) g/dL Hct 30.9 L (36.0-46.0) % MCV 90 (80-95) fL MCH 30.3 (27.0-33.0) pg MCHC 33.7 (32.0-36.0) % RDW 16.0 H (11.7-14.6) % Plt Count 194 (130-400) 10^3/uL MPV 12.1 H (8.0-11.0) fL Immature Gran % 1.0 % Neutrophils % 84.4 % Lymphocytes % 4.3 % Monocytes % 7.7 % Eosinophils % 2.1 % Basophils % 0.5 % Nucleated RBC % 0.0 (0.0-0.3) % Absolute Neutrophils 11.48 H (1.2-6.7) 10^3/uL Absolute Lymphocytes 0.58 L (1.2-3.4) 10^3/uL Absolute Monocytes 1.05 H (0.1-0.8) 10^3/uL Absolute Eosinophils 0.29 (0.0-0.7) 10^3/uL Absolute Basophils 0.07 (0.0-0.2) 10^3/uL Sodium 135 L (136-145) mmol/L Potassium 3.7 (3.5-5.1) mmol/L Chloride 97 L (98-107) mmol/L Carbon Dioxide 25.1 (21.0-32.0) mmol/L Anion Gap 12.9 H (3-11) mmol/L BUN 88 H* (7-18) mg/dL Creatinine 6.9 H* (0.55-1.02) mg/dL Est GFR (CKD-EPI 2020) 5.79 (mL/min/1.73m2) Glucose 124 H (74-106) mg/dL Calcium 8.2 L (8.5-10.1) mg/dL Magnesium 2.3 (1.8-2.4) mg/dL Total Bilirubin 2.0 H (0.2-1.0) mg/dL AST 140 H (15-37) U/L ALT 116 H (14-59) U/L Alkaline Phosphatase 897 H (46-116) U/L Ammonia Cancelled Troponin I 23 (<or=51) ng/L Total Protein 6.3 L (6.4-8.2) g/dL Albumin 1.8 L (3.4-5.0) g/dL Lipase 68 (<78) U/L Procalcitonin ng/mL TSH 19.28 H (0.36-3.74) uIU/mL Free T4 1.13 (0.76-1.46) ng/dL Urine Color (Yellow) Urine Clarity (Clear) Urine pH (5-8) Ur Specific [place] (1.005-1.025) Urine Protein (Neg-Trace) mg/dL Urine Ketones (Negative) mg/dL Urine Blood (Negative) Urine Nitrite (Negative) Urine Bilirubin (Negative) Urine Urobilinogen (Up to 0.2) mg/dL Ur Leukocyte Esterase (Negative) Urine RBC (0-2) HPF Urine WBC (0-5) HPF Ur Epithelial Cells (Negative) HPF Urine Crystals (Negative) HPF Urine Bacteria (Negative) HPF Urine Casts (Negative) LPF Urine Mucus (Negative) Ur Culture Indicated? Urine Glucose (Negative) mg/dL Urine Opiates Screen (Negative) Urine Methadone Screen (Negative) Ur Barbiturates Screen (Negative) Ur Tricyclics Screen (Negative) Ur Amphetamines Screen (Negative) U Benzodiazepines Scrn (Negative) Urine Cocaine Screen (Negative) Ur THC Screen (Negative) COVID-19 Source SARS-CoV-2 (PCR) Influenza Type A (PCR) Influenza Type B (PCR) RSV (PCR) ABO/Rh Antibody Screen 03/17/25 19:25 Urine Culture - Pending Urine - Reflex from Ua 03/17/25 19:05 Blood Culture - Pending Blood 03/17/25 17:29 Blood Culture - Pending Blood [id number] Documentation Fingerstick Glucose Start: 03/17/25 15:46 Freq: .Stat Status: Active Protocol: Activity Type Activity Date Activity User E-sign Co-sign Detail Recorded Client Recorded Date Recorded By Document 03/17/25 15:55 JULITO DABUDDY(3) [id number] 03/17/25 15:56 BKG DAMARYON(4) Intake and Output - 24 Hour Total 03/17/25 15:43 thru 03/17/25 20:23 Intake Total 1200 Output Total 50 Balance 1150 Weight 87.8 kg Intake: IV 1200 Output: Urine 50 Other: Urine Color Light Toshia Urine Appearance Clear Urinary Catheter Urinary Catheter Date of 03/17/25 Insertion [Urethral (Alvarado)] Time of insertion [Urethral ( 19:28 Alvarado)] Falls Risk Assessment History of Falls Previous History 03/17/25 15:49 Contributing Factors Confusion,Unstable 03/17/25 15:49 Ambulatory Aids Uses ambulatory device 03/17/25 15:49 Tubes/Lines W/no contributing factors 03/17/25 15:49 Gait Evaluation W/any additional score 03/17/25 15:49 Fall Total Score 66 03/17/25 15:49 Level of Risk High Risk 03/17/25 15:49 Notes 03/17/25 17:38 Nursing Notes by Patti Cook Nursing Note: First set of BC, H&H, and troponin labs drawn by auto technician mechanic, labor relations representative returned to lab with samples for processing. MD request CT at this time and second set of BC will be drawn when patient returns to the room. Pt. resting more comfortably, able to fall asleep between verbal stimulus, pt. appears more responsive to nurse, able to answer more questions. Initialized on 03/17/25 17:38 - END OF NOTE 03/17/25 16:52 Nursing Notes by Patti Cook Nursing Note: Multiple attempts have been made to obtain blood cultures and repeat Ammonia per lab, lab was called to come draw but they are backed up, pt. still needs CT and X-ray. Initialized on 03/17/25 16:52 - END OF NOTE v v v v v v v v v Sending and/or Receiving Nurses: Please use comment section below to note any information pertinent to the patient hand-off not included above. Information / Comments: Report taken from ED RN Patti, patient came in lethargic and low B/P , fell at home last Friday, refused ambulance staff to be brought to hospital, mental status was worst on first appointment in [facility], has bilateral IID. alvarado inserted w/ 50 cc output. Patient received Dilaudid and Fentanyl, mental status improving. Med rec not done, family left and unable to give more info. Report received from:
[2025-03-17] MEDS: oxyCODONE 5 MG TAB PO (21:54)
[2025-03-17] MEDS: Normal Saline Flush 10 ML SYR IVP (21:55)
[2025-03-17] MEDS: Heparin 5,000 UNITS/ML VIAL 5000 UNITS SC (21:55)
[2025-03-17] MEDS: Normal Saline 1,000 ML 125 ML IV (22:12)
[2025-03-17 22:13] LABS: Troponin I 24 ng/L (<or=51)
[2025-03-18 00:52] VITALS: BP 126/79; PULSE 60; RESP 18; TEMP 36.5; O2SAT 97
[2025-03-18 03:43] VITALS: BP 105/65; PULSE 57; RESP 16; TEMP 36.1; O2SAT 96
[2025-03-18 06:52] LABS: Abs Immature Grans 0.14 10^3/uL (0.0-0.06); HCT 31.4 % (36.0-46.0); HGB 10.3 g/dL (11.2-15.7); Immature Grans % 0.8 %; MCH 30.7 pg (27.0-33.0); MCHC 32.8 % (32.0-36.0); MCV 94 fL (80-95); MPV 12.7 fL (8.0-11.0); Platelet Count 171 10^3/uL (130-400); RBC 3.36 10^6/uL (3.93-5.22); RDW 16.2 % (11.7-14.6); RDW-SD 55.8 fL; WBC 16.67 10^3/uL (4.4-10.8)
[2025-03-18 06:59] LABS: INR 1.8 (0.9-1.1); Prothrombin Time 17.0 sec (9.1-11.1)
[2025-03-18 07:12] LABS: ALT 109 U/L (14-59); AST 122 U/L (15-37); Albumin 1.7 g/dL (3.4-5.0); Alkaline Phosphatase 851 U/L (46-116); Anion Gap 16.9 mmol/L (3-11); Bilirubin, Total 1.8 mg/dL (0.2-1.0); CO2 23.1 mmol/L (21.0-32.0); Calcium 7.7 mg/dL (8.5-10.1); Chloride 98 mmol/L (98-107); Estimated GFR 5.32 (mL/min/1.73m2); Glucose 102 mg/dL (74-106); Magnesium 2.2 mg/dL (1.8-2.4); Potassium 3.3 mmol/L (3.5-5.1); Sodium 138 mmol/L (136-145); Total Protein 5.9 g/dL (6.4-8.2)
[2025-03-18 07:18] LABS: BUN 90 mg/dL (7-18)
[2025-03-18 07:38] VITALS: BP 140/55; PULSE 60; RESP 16; O2SAT 98
[2025-03-18] MEDS: HYDROmorphone 2 MG/ML SYR 0.5 MG IVP ×3 (07:44→13:27)
[2025-03-18] MEDS: Normal Saline Flush 10 ML SYR IVP ×3 (07:46→13:27)
[2025-03-18] MEDS: Heparin 5,000 UNITS/ML VIAL 5000 UNITS SC (08:53)
--- NOTE | 2025-03-18 09:04 | PDOC.CMIN ---
Date of service: 03/18/25 Time of Service: 09:05 Care Management Initial Assmt Initial Assessment Reason for Hospitalization: renal failure Functional Status/Living Situation Patient Presentation: Soheila was lying in bed, softly moaning in pain, when CM met with her. She informed CM that she was very thirsty and requested cold shani jay, which was provided. Soheila was admitted in acute renal failure with a creatinine of 6.9. She is from [place], [place] and [facility] for a SBP in the 80s. She is awaiting a bed in a tertiary care center. [facility] and [facility] have no beds. A call was received from [facility] with a bed offer. She will transfer via EMS ([facility]) this afternoon. CM informed Soheila where she would be going and she stated, Oh, no, not again. Soheila was not accompanied by any family when she arrived in the ED. She apparently has 2 sons but is unable to provide contact information for them. She is not from this area and has not been hospitalized at [facility] before. CM contacted the Home health Agency that has been providing services for her ([facility]) and the [facility] and was able to obtain a phone number for her son Dalton. Unfortunately he did not answer and the mailbox is full. CM will attempt to reach him again later to inform him of the transfer. Soheila was in pain and very sleepy when CM met with her. She was not able to answer questions or provide any additional information. Town of Residence: [place], [place] Medications Medication Management: No Issues/Barriers identified Advance Directives Advance Directives: Do you have an Advance Directive: AD On File at [facility]: N 03/17/25, 20:26 Date Asked AD Date Reviewed COLST On File at [facility] No 03/17/25, 20:26 COLST Date Scanned Code Status Resuscitation Status Full Code Portal Pt does not currently have a portal and education provided: No Insurance Coverage/Financial Issues Insurance: Medicare Care Team Visit Care Team Role Provider Type Kyle Sotelo MD MD [facility] STAFF PHYSICIAN Unknown Unknown Primary Care Provider STAFF PHYSICIAN Vega Groves MD Emergency Provider [facility] STAFF PHYSICIAN Jam Suarez MD Admit Provider [facility] STAFF PHYSICIAN Attending Provider Discharge Potential Discharge Needs: PCP F/U Appt and Other (Oncology) Anticipated Barriers to Discharge: Bed availability Patient/Family Education Needs: Review discharge instructions, discuss Ask Me Three Transportation: EMS Plan: Soheila is awaiting transfer to a tertiary care center for stage V renal failure. Neither [facility] not [facility] had any bed availability but [place], [place] did, so she will be transferred there this afternoon. She will follow up with the facility providers and plan of care and transport via EMS coordinated by nursing records section supervisor. CM will follow. Social Determinants of Health Screening Social Determinants of health last assessed in clinic: 03/18/25 Will the Patient Participate in the Screening?: Yes Do you worry about having a steady place to live?: yes What is your living situation today?: I have housing today, but am worried about losing it Problems where you live: no known problems In the past 12 months, have you had to go without electric, gas, oil or water in your home?: no 1. Within the past 12 months, we worried whether our food would run out before we got money to buy more.: Don't know/refused 2. Within the past 12 months, the food we bought just didn't last and we didn't have money to get more.: Don't know/refused Has lack of transportation kept you from medical appointments or from doing things needed for daily living?: no Has anyone in your life made you feel unsafe or unsupported?: no How hard is it for you to pay for the very basics like food, housing, medical care, and heating? Would you say it is:: Not hard at all Do you want help finding or keeping work or a job?: I do not need or want help If for any reason you need help with day-to-day activities such as bathing, preparing meals, shopping, managing finances, etc., do you get the help you need?: I get all the help I need How often do you feel lonely or isolated from those around you?: Never Do you speak a language other than Belarusian at home?: Yes Does the patient want assistance with any of the above?: No Comments: At this time patient is not sure of her answers. Health Related Social Needs Health related social needs: housing instability, housed, with risk of homelessness (Z59.811) and education (Z55.6) Health related social needs details: Unable to assess needs at this time. 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
[2025-03-18 11:14] VITALS: BP 149/62; PULSE 60; RESP 16; TEMP 36.2; O2SAT 94
--- NOTE | 2025-03-18 12:28 | DSE_ITS ---
Date of service: 03/18/25 Time of Service: 12:28 DS: Diagnosis Discharge Diagnosis (1) Acute renal failure superimposed on chronic kidney disease: Status: Acute (2) Hepatic failure: Status: Acute (3) S/P TIPS (transjugular intrahepatic portosystemic shunt): Status: Acute (4) Cholangiocarcinoma of biliary tract: Status: Acute (5) Renal artery stenosis: Status: Acute (6) Hypothyroidism: Status: Chronic (7) Benign essential hypertension: Status: Acute Discharge Plan Disposition Patient Disposition: Transfer-Acute Inpatient Care Specific Acute Inpt Facility: [facility] Condition: Fair Discharge Details Reason For Visit: acute renal failure Admit Date/Time: 03/17/25 20:13 Admit Provider: Jam Suarez Attending Provider: Jam Suarez Primary Care Provider: Unknown,Unknown Hospital Course Hospital Course: Patient initially presented from oncologist office with concerns for hypotension. She was given IV fluid resuscitation and improved. However, patient was also found to be in acute renal failure with creatinine up to 7.4, BUN of 90, potassium of 3.3, and only made total of about 200 cc of urine during the 20 hours she was hospitalized. 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 [facility] did not have any bed availability nor did [facility], but ultimately [facility] accepted the patient in transfer to their stepdown unit and will consult to nephrology and oncology. Ultimately, it was determined that at this time patient's vital signs are stable and she is ready for transfer to [facility]. Home Meds and New Rx's Prescriptions: No Action carvedilol 25 mg tablet 25 mg PO BID Rx Instructions: must administer with a meal/food bumetanide 1 mg tablet 1 mg PO DAILY levothyroxine [Euthyrox] 137 mcg tablet 137 mcg PO DAILY ondansetron 4 mg tablet,disintegrating 8 mg PO Q8H PRN (Reason: nausea and vomiting) losartan [Cozaar] 100 mg tablet See Rx Instructions PO BID Rx Instructions: 100mg AM and 150mg PM orally ; oxycodone 5 mg tablet 5 mg PO Q8H PRN (Reason: pain) rosuvastatin [Crestor] 5 mg tablet 5 mg PO DAILY Discharge Instructions Activity:: Activity as Tolerated Equipment/Supplies:: No Equipment Needed Diet:: As Tolerated Discharge Orders Discharge Orders: Discharge Order (Routine); Ordered 03/18/25 Ordered By: Kyle Sotelo DS: Summary Time Spent with Patient providing and/or coordinating discharge services: Greater than 30 minutes Status at Discharge Functional status at discharge: independent ambulation Overall status at discharge: patient is back to baseline Mental Status: mental status grossly normal Speech and Movement: speech and movement normal Mood: congruent mood Affect: normal affect Quality:SDOH Health Related Social Needs: Health related social needs risk of homeless education Health related social needs details Unable to assess n eeds at this time. Health related social needs details: Unable to assess needs at this time. Exam Narrative Exam Narrative: Fatigued appearing female laying in bed in no acute distress, awake, alert, oriented to person and place only, heart regular rhythm, lungs diminished breath sounds in bilateral bases, abdomen diffuse anasarca with significant lower extremity +3 pitting edema Psych Mental Status: mental status grossly normal Speech and Movement: speech and movement normal Mood: congruent mood Affect: normal affect DS: Data Vitals/I&O Vitals and I&O: Vital Signs Temperature 97.2 F L 03/18/25 11:14 Temperature Source Temporal Artery Scan 03/18/25 11:14 Pulse 60 03/18/25 11:14 Pulse Rhythm Irregular 03/17/25 21:18 Pulse Strength Normal 03/17/25 18:34 Pulse 57 L 03/17/25 20:10 Respiratory Rate 16 03/18/25 11:14 Respiratory Effort Normal, Non-Labored 03/17/25 21:18 Respiratory Depth Normal 03/17/25 21:18 Respiratory Pattern Normal 03/17/25 21:18 Blood Pressure 149/62 H 03/18/25 11:14 Blood Pressure Mean 91 03/18/25 11:14 Blood Pressure Position Supine 03/17/25 18:34 Pulse Oximetry 94 03/18/25 11:14 Oxygen Delivery Method Room Air 03/18/25 11:14 Oxygen Flow Rate 0 03/18/25 11:14 Pain Level 0 03/18/25 03:43 Intake & Output 03/17/25 03/18/25 03/18/25 17:59 05:59 17:59 Intake Total 1000 / 1000 400 / 1400 250 / 250 Output Total 50 / 50 75 / 75 Balance 1000 / 1000 350 / 1350 175 / 175 Weight 193 lb 9.054 oz 193 lb 9.054 oz Intake: IV 1000 / 1000 300 / 1300 250 / 250 Oral 100 / 100 Output: Urine 50 / 50 75 / 75 Other: Urine Color Light Toshia Dark Toshia Bryan Urine Appearance Clear Data Completed and Pending Labs on day of discharge: Labs from last 24 hours 03/18/25 03/17/25 03/17/25 06:13 21:40 19:52 WBC 16.67 H RBC 3.36 L Hgb 10.3 L Hct 31.4 L MCV 94 D MCH 30.7 MCHC 32.8 RDW 16.2 H Plt Count 171 MPV 12.7 H Immature Gran % 0.8 Neutrophils % 83.3 Lymphocytes % 4.7 Monocytes % 7.9 Eosinophils % 2.6 Basophils % 0.7 Nucleated RBC % 0.0 Absolute Neutrophils 13.89 H Absolute Lymphocytes 0.78 L Absolute Monocytes 1.32 H Absolute Eosinophils 0.43 Absolute Basophils 0.12 PT 17.0 H INR 1.8 H Sodium 138 Potassium 3.3 L Chloride 98 Carbon Dioxide 23.1 Anion Gap 16.9 H BUN 90 H* Creatinine 7.4 H* Est GFR (CKD-EPI 2020) 5.32 Glucose 102 Calcium 7.7 L Phosphorus 5.9 H Magnesium 2.2 Total Bilirubin 1.8 H AST 122 H ALT 109 H Alkaline Phosphatase 851 H Ammonia Troponin I 24 Total Protein 5.9 L Albumin 1.7 L Lipase Procalcitonin TSH Free T4 Urine Color Urine Clarity Urine pH Ur Specific [place] Urine Protein Urine Ketones Urine Blood Urine Nitrite Urine Bilirubin Urine Urobilinogen Ur Leukocyte Esterase Urine RBC Urine WBC Ur Epithelial Cells Urine Crystals Urine Bacteria Urine Casts Urine Mucus Ur Culture Indicated? Urine Glucose Urine Opiates Screen Urine Methadone Screen Ur Barbiturates Screen Ur Tricyclics Screen Ur Amphetamines Screen U Benzodiazepines Scrn Urine Cocaine Screen Ur THC Screen COVID-19 Source Nasopharynx SARS-CoV-2 (PCR) Negative Influenza Type A (PCR) Negative Influenza Type B (PCR) Negative RSV (PCR) Negative ABO/Rh Antibody Screen 03/17/25 03/17/25 03/17/25 19:25 19:13 17:29 WBC RBC Hgb Hct MCV MCH MCHC RDW Plt Count MPV Immature Gran % Neutrophils % Lymphocytes % Monocytes % Eosinophils % Basophils % Nucleated RBC % Absolute Neutrophils Absolute Lymphocytes Absolute Monocytes Absolute Eosinophils Absolute Basophils PT INR Sodium Potassium Chloride Carbon Dioxide Anion Gap BUN Creatinine Est GFR (CKD-EPI 2020) Glucose Calcium Phosphorus Magnesium Total Bilirubin AST ALT Alkaline Phosphatase Ammonia 45 H Troponin I 23 Total Protein Albumin Lipase Procalcitonin TSH Free T4 Urine Color Yellow Urine Clarity Sl Cloudy Urine pH 5.5 Ur Specific [place] 1.020 Urine Protein Trace Urine Ketones Negative Urine Blood Trace-intact H Urine Nitrite Negative Urine Bilirubin Small H Urine Urobilinogen 2.0 H Ur Leukocyte Esterase Moderate H Urine RBC 3-5 H Urine WBC >50 H Ur Epithelial Cells Few Urine Crystals Negative Urine Bacteria Few Urine Casts Negative Urine Mucus Negative Ur Culture Indicated? Yes Urine Glucose Negative Urine Opiates Screen Positive A Urine Methadone Screen Negative Ur Barbiturates Screen Negative Ur Tricyclics Screen Negative Ur Amphetamines Screen Negative U Benzodiazepines Scrn Negative Urine Cocaine Screen Negative Ur THC Screen Negative COVID-19 Source SARS-CoV-2 (PCR) Influenza Type A (PCR) Influenza Type B (PCR) RSV (PCR) ABO/Rh A Positive Antibody Screen NEGATIVE 03/17/25 03/17/25 16:04 16:03 WBC 13.60 H RBC 3.43 L Hgb 10.4 L Hct 30.9 L MCV 90 MCH 30.3 MCHC 33.7 RDW 16.0 H Plt Count 194 MPV 12.1 H Immature Gran % 1.0 Neutrophils % 84.4 Lymphocytes % 4.3 Monocytes % 7.7 Eosinophils % 2.1 Basophils % 0.5 Nucleated RBC % 0.0 Absolute Neutrophils 11.48 H Absolute Lymphocytes 0.58 L Absolute Monocytes 1.05 H Absolute Eosinophils 0.29 Absolute Basophils 0.07 PT INR Sodium 135 L Potassium 3.7 Chloride 97 L Carbon Dioxide 25.1 Anion Gap 12.9 H BUN 88 H* Creatinine 6.9 H* Est GFR (CKD-EPI 2020) 5.79 Glucose 124 H Calcium 8.2 L Phosphorus Magnesium 2.3 Total Bilirubin 2.0 H AST 140 H ALT 116 H Alkaline Phosphatase 897 H Ammonia Cancelled Troponin I 23 Total Protein 6.3 L Albumin 1.8 L Lipase 68 Procalcitonin 1.25 TSH 19.28 H Free T4 1.13 Urine Color Urine Clarity Urine pH Ur Specific [place] Urine Protein Urine Ketones Urine Blood Urine Nitrite Urine Bilirubin Urine Urobilinogen Ur Leukocyte Esterase Urine RBC Urine WBC Ur Epithelial Cells Urine Crystals Urine Bacteria Urine Casts Urine Mucus Ur Culture Indicated? Urine Glucose Urine Opiates Screen Urine Methadone Screen Ur Barbiturates Screen Ur Tricyclics Screen Ur Amphetamines Screen U Benzodiazepines Scrn Urine Cocaine Screen Ur THC Screen COVID-19 Source SARS-CoV-2 (PCR) Influenza Type A (PCR) Influenza Type B (PCR) RSV (PCR) ABO/Rh Antibody Screen 03/17/25 19:05 Blood Blood Culture - Pending 03/17/25 17:29 Blood Blood Culture - Pending Preliminary micro results at discharge 03/17/25 19:25 Urine - Reflex from Ua Urine Culture - Preliminary Escherichia coli 03/17/25 19:05 Blood Blood Culture - Pending 03/17/25 17:29 Blood Blood Culture - Pending [facility] All Active Problems (Updated 03/17/25 @ 22:40 by Jam Suarez MD) Renal artery stenosis (Acute) Benign essential hypertension (Acute) Hypothyroidism (Chronic) 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) Acute renal failure superimposed on chronic kidney disease (Acute) Hepatic failure (Acute) Acute renal failure (Acute) Social History Smoking/Tobacco Use Status: Never Smoking risk assessment performed?: Yes Alcohol Intake: never Substance use type: does not use Housing: house Time Spent with Patient Time Spent with Patient: <45 minutes Time was spent: preparing to see the patient(eg.review tests), obtaining and/or reviewing separately otained hiistory, ordering medications,tests, procedures, referring, communicating with other health neurocritical care physician, indepentently interpreting results, counseling the patient and care coordination
--- NOTE | 2025-03-18 14:11 | NUR.NOTE ---
Nursing Note: Pt able provide names of sons for HIPPA with signature, stating It's not going to be very good, as she signed. Unable to provide contact info or places of employment for contact. RN ran a search for son's names online by geography, only one result came up which was found to be the wrong number.
--- NOTE | 2025-03-18 14:32 | CMDISCH_ITS ---
Date of service: 03/18/25 Time of Service: 14:32 LACE Index Scoring Tool Questions: Length of Stay (in days): 1 Was the patient admitted via the E.D.?: Yes Comorbidities: Any Tumor and Liver or Renal Disease E.D. Visits: 1 Answers: Total Score: 10 Risk of Readmission: High Risk Care Management Discharge Plan Reason for Hospitalization: acute renal failure Discharge Plan: Soheila will be transferred to [facility] this afternoon. She will transport via EMS coordinated by the nursing mushroom growing supervisor. Services Needed at Discharge: Transportation SDOH Health Related Social Needs: Health related social needs risk of homeless education Health related social needs details Unable to assess n eeds at this time. Health related social needs details: Unable to assess needs at this time.
== END 2025-03-18 14:54 | disposition short-term general hospital (02) ==
LOC: ER 20:27 → MS 20:30
PROVIDERS: Admitting Provider Family Medicine; Emergency Provider General Practice; Responsible Provider Family Medicine; Visit Provider Family Medicine
DX: N17.9 Acute kidney failure, unspecified (principal); N18.9 Chronic kidney disease, unspecified; K72.90 Hepatic failure, unspecified without coma; C22.1 Intrahepatic bile duct carcinoma; I70.1 Atherosclerosis of renal artery; E03.9 Hypothyroidism, unspecified; I12.9 Hypertensive chronic kidney disease with stage 1 through stage 4 chronic kidney disease, or unspecified chronic kidney disease; Z95.828 Presence of other vascular implants and grafts; R18.8 Other ascites; I95.9 Hypotension, unspecified; W19.XXXA Unspecified fall, initial encounter; I34.0 Nonrheumatic mitral (valve) insufficiency; F32.A Depression, unspecified; E78.5 Hyperlipidemia, unspecified; Z79.899 Other long term (current) drug therapy
CPT/HCPCS: 00123; 36415; 36416; 71250; 80053; 80307; 82962; 83690; 84145; 86850; 86900; 86901; 87040; 87077; 87637; 96361; 96365; 96366; 96368; 96372; 96375; 96376; 99285; 70450; 71045; 72125; 72170; 74176; 81003; 81015; 82140; 83735; 84100; 84439; 84443; 84484; 85025; 85610; 87086; 87186; 99222; 99238; G0378; J1171; J1644; J1836; J2543; J3010; J3373